=== PATIENT | male | born 1955 | race Caucasian/White ===

== ENCOUNTER → 2017-03-12 | Outpatient (CLI) | payer BC ==
[~2017-03-12] MED LIST: GADOBUTROL 10 MMOL/10 ML PFS ONE
== END | disposition home or self-care (01) ==
LOC: CFH 10:06
PROVIDERS: ATTEND Genetic Counselor, MS
DX: Z12.2 Encounter for screening for malignant neoplasm of respiratory organs (principal); R90.82 White matter disease, unspecified; G93.89 Other specified disorders of brain; M50.323 Other cervical disc degeneration at C6-C7 level; R91.1 Solitary pulmonary nodule; F17.210 Nicotine dependence, cigarettes, uncomplicated
CPT/HCPCS: 70553; 72050; 82565; A9585; G0297

== ENCOUNTER → 2018-03-26 | Outpatient (CLI) | payer BC | END | disposition home or self-care (01) | LOC: CFH 15:08 | PROVIDERS: ATTEND Genetic Counselor, MS | DX: Z12.2 Encounter for screening for malignant neoplasm of respiratory organs (principal); R91.1 Solitary pulmonary nodule; Z87.891 Personal history of nicotine dependence | CPT/HCPCS: G0297 ==

== ENCOUNTER → 2019-03-25 | Outpatient (CLI) | payer BC | END | disposition home or self-care (01) | LOC: CFH 10:23 | PROVIDERS: ATTEND Genetic Counselor, MS | DX: Z12.2 Encounter for screening for malignant neoplasm of respiratory organs (principal); Z87.891 Personal history of nicotine dependence | CPT/HCPCS: G0297 ==